=== PATIENT | female | born 1980 | race Caucasian/White ===

== ENCOUNTER 2017-11-14 15:32 | Emergency (ER) | payer SELFPAY ==
[~2017-11-14] VITALS: Ht 160 cm; Wt 72.5 kg
[2017-11-14 15:55] VITALS: BP 122/58; PULSE 76; RESP 15; TEMP 98.6; O2SAT 100
[2017-11-14 17:08] LABS: BACTERIA, URINE OCC /hpf; BILIRUBIN, URINE NEG (NEG); BLOOD, URINE SMALL (NEG); GLUCOSE,URINE NEG (NEG); HYALINE CAST, URINE 2 /lpf (RARE); KETONE, URINE TRACE mg/dL (NEG); MUCUS URINE MANY /lpf (OCC); NITRITE,URINE NEG (NEG); SQUAMOUS EPITHELIAL CELL URINE 3 /hpf (0-5); URINE COLOR YELLOW (YELLW/STRAW); URINE LEUKOCYTE ESTERASE NEG (NEG)
[2017-11-14] MEDS ORDERED: PHEN0.4T PO (18:55)
[2017-11-14] MEDS ORDERED: MACR100C2 PO (18:55)
--- NOTE | 2017-11-14 18:55 | PD ---
HPI Chief Complaint: Complaint Time Seen by Provider: 18:49 Travel History International Travel<30 days: No Contact w/Intl Traveler<30days: No Traveled to known affect area: No History of Present Illness HPI 36-year-old female presents emergency department with 3 day history of increasing dysuria and lower abdominal cramping. Patient denies vaginal symptoms. She has had chills but no fevers. She has mild low back pain but no flank pain. Patient has history of urinary tract infection but many years ago. She denies any other significant symptoms. She denies . She is allergic to penicillin. PFS Past Medical History ?: Not Social History Alcohol Use: Yes Tobacco Use: No Substance Use: No Review of Systems Except as stated in HPI: all other systems reviewed are Neg General / Constitutional: Positive: Chills, No: Fever Eyes: No: Visual changes HENT: No: Headaches Cardiovascular: No: Chest Pain or Discomfort Respiratory: No: Shortness of Breath Gastrointestinal: No: Abdominal Pain Genitourinary: Positive: Urgency, Frequency, Dysuria, Pelvic Pain, No: Flank Pain, Discharge, Vaginal Bleeding Musculoskeletal: No: Pain Skin: No Rash Neurologic: No: Weakness Psychiatric: No: Depression Endocrine: No: Polydipsia Hematologic/Lymphatic: No: Easy Bruising Physical Exam Narrative GENERAL: Patient appears in mild distress. SKIN: Warm and dry. Normal color. Normal turgor HEAD: Atraumatic. Normocephalic. EYES: Pupils equal and round. No scleral icterus. No injection or drainage. ENT: No nasal bleeding or discharge. Mucous membranes pink and moist. Pharynx is clear. Airway is patent NECK: Trachea midline. Supple. CARDIOVASCULAR: Regular rate and rhythm. RESPIRATORY: No accessory muscle use. Clear to auscultation. Breath sounds equal bilaterally. GASTROINTESTINAL: Abdomen soft, mild to moderate suprapubic tenderness, nondistended. No CVA tenderness. Hepatic and splenic margins not palpable. MUSCULOSKELETAL: Extremities without clubbing, cyanosis, or edema. No obvious deformities. NEUROLOGICAL: Awake and alert. No obvious cranial nerve deficits. Motor grossly within normal limits. Five out of 5 muscle strength in the arms and legs. Normal speech. PSYCHIATRIC: Appropriate mood and affect; insight and judgment normal. Data Data Last Documented VS Vital Signs Date Time Temp Pulse Resp B/P (MAP) Pulse Ox O2 Delivery O2 Flow Rate FiO2 6/22/18 15:55 98.6 76 15 122/58 (79) 100 Orders Orders Urinalysis - C+S If Indicated (11/14/17 16:02) Urine Culture (11/14/17 16:00) Labs Laboratory Tests Test 11/14/17 16:00 Urine Color YELLOW Urine Turbidity HAZY Urine pH 7.0 Urine Specific [place] 1.020 Urine Protein NEG mg/dL Urine Glucose (UA) NEG mg/dL Urine Ketones TRACE mg/dL Urine Occult Blood SMALL Urine Nitrite NEG Urine Bilirubin NEG Urine Urobilinogen 2.0 mg/dL Urine Leukocyte Esterase NEG Urine RBC 3 /hpf Urine WBC 13 /hpf Urine Squamous Epithelial Cells 3 /hpf Urine Bacteria OCC /hpf Urine Hyaline Casts 2 /lpf Urine Mucus MANY /lpf Microscopic Urinalysis Comment CULTURE INDICATED MDM Medical Decision Making Medical Screen Exam Complete: Yes Emergency Medical Condition: Yes Differential Diagnosis Dysuria. Urinary frequency. Urinary tract infection Narrative Course Urinalysis suggestive of urinary tract infection. Urine culture is placed Patient will be treated with Macrodantin 100 mg twice daily for 7 days. Patient will be also given Pyridium 100 mg 3 times daily #12 Patient to follow-up if symptoms do not improve in the next several days. Diagnosis Primary Impression: Urinary tract infection Qualified Codes: N30.00 - Acute cystitis without hematuria Patient Instructions: Dysuria (ED), General Instructions Additional Instructions: Urinalysis suggestive of urinary tract infection. Urine culture is placed Patient will be treated with Macrodantin 100 mg twice daily for 7 days. Patient will be also given Pyridium 100 mg 3 times daily #12 Patient to follow-up if symptoms do not improve in the next several days. Med/Other Pt SpecificInfo: Prescription(s) given Disposition: 01 DISCHARGE HOME Condition: Stable Lexa Mobley Nov 14, 2017 18:55
== END 2017-11-14 19:16 | disposition home or self-care (01) ==
LOC: NEPK 15:32
DX: N30.00 Acute cystitis without hematuria (principal)
CPT/HCPCS: 81001; 87086; 99283